=== PATIENT | male | born 1960 | race Caucasian/White ===

== ENCOUNTER 2020-04-08 17:33 | Observation (INO) ==
[2020-04-08] MEDS ORDERED: *HR* LORazepam 2 MG/ML VIAL IVP PRN ×2 (17:43)
[2020-04-08] MEDS ORDERED: Folic Acid 1 MG TABLET PO ONE (17:44)
[2020-04-08] MEDS ORDERED: 0.9 % Sodium Chloride 1,000 ML IVC ONE (17:44)
[2020-04-08] MEDS ORDERED: Thiamine (B-1) 100 MG TABLET PO ONE (17:44)
[2020-04-08 18:30] LABS: Alanine Aminotransferase 150 Units/L (7-52); Albumin 3.3 g/dL (3.5-5.7); Albumin/Globulin Ratio 1.2 (1.1-2.2); Alkaline Phosphatase 80 Units/L (34-104); Aspartate Amino Transferase 118 Units/L (13-39); Bilirubin,Direct 0.2 mg/dL (0.0-0.2); Bilirubin,Indirect 0.4 mg/dL (0.0-1.0); Bilirubin,Total 0.6 mg/dL (0.3-1.0); Globulin 2.8 g/dL (2.4-3.5); Lipase 61 Units/L (11-82); Total Protein 6.1 g/dL (6.4-8.9)
[2020-04-08 18:49] LABS: Thyroid Stimulating Hormone < 0.010 mcIU/mL (0.340-5.600)
[2020-04-08 19:48] LABS: Basophils % 0.8 %; Eosinophils # 0.3 K/mcL (0.0-0.6); Eosinophils % 6.6 %; Hematocrit 43.9 % (37.5-50.1); Hemoglobin 14.9 g/dL (12.9-16.9); Lymphocytes # 1.2 K/mcL (0.6-4.6); Lymphocytes % 30.8 %; Mean Corpuscular HGB Conc 33.9 g/dL (31.6-35.5); Mean Corpuscular Hemoglobin 32.5 pg (28.0-33.3); Mean Corpuscular Volume 95.9 fL (83.0-100.0); Mean Platelet Volume 9.9 fL (9.4-12.4); Monocytes # 0.6 K/mcL (0.0-1.3); Monocytes % 15.5 %; Neutrophils # 1.8 K/mcL (1.6-8.9); Platelet Count 108 K/mcL (140-400); Red Blood Count 4.58 M/mcL (4.19-5.50); Red Cell Distribution Width 12.2 % (11.5-14.5); Segmented Neutrophils % 46.3 %; White Blood Count 3.9 K/mcL (4.3-11.1)
[2020-04-08] MEDS ORDERED: Naloxone 0.4 MG/ML INJ IVP PRN (20:13)
[2020-04-08] MEDS ORDERED: Ondansetron 4 MG/2 ML VIAL IVP PRN (20:13)
[2020-04-08 20:16] LABS: BUN/Creatinine Ratio 19 (6-26); Blood Urea Nitrogen 11 mg/dL (8-23); Calcium 8.5 mg/dL (8.6-10.3); Carbon Dioxide 26 mEq/L (23-29); Chloride 107 mEq/L (98-107); Ethanol < 10 mg/dL (Less than 10); Glucose 93 mg/dL (70-105); Osmolality,Calculated 289 (280-300); Sodium 140 mEq/L (136-145); Troponin I < 0.03 ng/mL (< 0.04); eGFR For African Americans > 60 (> 60); eGFR For Non-African Americans > 60 (> 60)
[2020-04-08 21:06] LABS: Folate > 22.3 ng/mL (3.0-16.0); Vitamin B12 569 pg/mL (250-1100)
[2020-04-08] MEDS ORDERED: Calcium Gluconate 1gm/50mL 1 GM/50 ML BAG IVPB ONE (21:42)
[2020-04-08] MEDS: Nicotine 14 MG PATCH.TD24 TD SCH (22:22)
[2020-04-08] MEDS: *HR* LORazepam 2 MG/ML VIAL IVP PRN (22:23)
[2020-04-08 22:48] LABS: Bilirubin,Urine Negative (Negative); Blood,Urine Trace (Negative); Clarity,Urine Clear (Clear); Color,Urine Light-Yellow (Yellow); Glucose,Urine (UA) Normal (Normal); Hyaline Casts,Urine Few per lpf (None Seen); Ketones,Urine Negative (Negative); Leukocyte Esterase,Urine Negative (Negative); Mucus,Urine Few per lpf (None-Few); Nitrite,Urine Negative (Negative); Protein,Urine Negative (Neg-Trace); Specific Gravity,Urine 1.015 (1.010-1.025); Squamous Epithelial Cell,Urine Few per hpf (None-Few); WBC,Urine 0-3 per hpf (0-3)
[2020-04-08 23:07] LABS: Amphetamine Screen,Urine Negative ng/mL (Cutoff=1000); Barbiturate Screen,Urine Negative ng/mL (Cutoff=200); Benzodiazepines Screen,Urine Negative ng/mL (Cutoff=200); Cannabinoid Screen,Urine Positive ng/mL (Cutoff = 50); Cocaine Screen,Urine Negative ng/mL (Cutoff= 300); Opiate Screen,Urine Negative ng/mL (Cutoff=300); Phencyclidine Screen,Urine Negative ng/mL (Cutoff=25)
[2020-04-09 00:06] LABS: Triiodothyronine (T3) Free 7.06 pg/mL (2.50-3.90)
[2020-04-09 00:09] LABS: Triiodothyronine (T3) Total 2.36 ng/mL (0.87-1.78)
[2020-04-09 01:10] LABS: Mean Corpuscular Volume 97.8 fL (83.0-100.0)
[2020-04-09 01:12] LABS: Hematocrit 45.2 % (37.5-50.1); Immature Platelets 5.8 % (1.1-6.1); Mean Corpuscular HGB Conc 33.2 g/dL (31.6-35.5); Mean Corpuscular Hemoglobin 32.5 pg (28.0-33.3); Mean Platelet Volume 10.4 fL (9.4-12.4); Red Blood Count 4.62 M/mcL (4.19-5.50); White Blood Count 3.6 K/mcL (4.3-11.1)
[2020-04-09 01:25] LABS: BUN/Creatinine Ratio 21 (6-26); Blood Urea Nitrogen 11 mg/dL (8-23); Carbon Dioxide 24 mEq/L (23-29); Chloride 106 mEq/L (98-107); Chol/HDL Ratio 2.1 (0-4.9); Cholesterol 105 mg/dL (< 200); Glucose 92 mg/dL (70-105); HDL Cholesterol 51 mg/dL (40-59); LDL Cholesterol,Calculated 46 mg/dL (< 100); Magnesium 1.6 mg/dL (1.6-2.6); Osmolality,Calculated 283 (280-300); Potassium 3.8 mEq/L (3.5-5.1); Sodium 137 mEq/L (136-145); Triglycerides 41 mg/dL (< 150); eGFR For African Americans > 60 (> 60); eGFR For Non-African Americans > 60 (> 60)
[2020-04-09] MEDS: *HR* LORazepam 2 MG/ML VIAL IVP PRN ×3 (03:46→20:48)
[2020-04-09] MEDS ORDERED: Gabapentin 300 MG CAPSULE PO SCH (09:00)
[2020-04-09] MEDS ORDERED: clonazePAM 0.5 MG TABLET PO ONE (12:13)
[2020-04-09] MEDS ORDERED: cloNIDine HCL 0.1 MG TABLET PO ONE (12:24)
[2020-04-09] MEDS: Gabapentin 300 MG CAPSULE PO SCH ×2 (15:14→20:48)
[2020-04-09] MEDS: methIMAzole 5 MG TABLET PO SCH ×2 (15:14→20:48)
[2020-04-09] MEDS ORDERED: Isovue-370 500 ML BOTTLE IVP ONE (17:30)
[2020-04-09] MEDS: cloNIDine HCL 0.1 MG TABLET PO SCH (20:48)
[2020-04-09] MEDS: Nicotine 14 MG PATCH.TD24 TD SCH (21:01)
[2020-04-09] MEDS: Melatonin 3 MG TABLET PO PRN (23:39)
[2020-04-10 05:39] LABS: Mean Platelet Volume 10.4 fL (9.4-12.4); Red Cell Distribution Width 11.9 % (11.5-14.5)
[2020-04-10 05:41] LABS: Hematocrit 48.1 % (37.5-50.1); Hemoglobin 16.6 g/dL (12.9-16.9); Immature Platelets 7.1 % (1.1-6.1); Mean Corpuscular HGB Conc 34.5 g/dL (31.6-35.5); Mean Corpuscular Hemoglobin 33.3 pg (28.0-33.3); Mean Corpuscular Volume 96.4 fL (83.0-100.0); Red Blood Count 4.99 M/mcL (4.19-5.50); White Blood Count 4.7 K/mcL (4.3-11.1)
[2020-04-10 05:55] LABS: Alanine Aminotransferase 150 Units/L (7-52); Albumin 3.7 g/dL (3.5-5.7); Albumin/Globulin Ratio 1.3 (1.1-2.2); Alkaline Phosphatase 84 Units/L (34-104); Aspartate Amino Transferase 102 Units/L (13-39); BUN/Creatinine Ratio 16 (6-26); Bilirubin,Total 1.1 mg/dL (0.3-1.0); Blood Urea Nitrogen 11 mg/dL (8-23); Calcium 9.3 mg/dL (8.6-10.3); Carbon Dioxide 26 mEq/L (23-29); Chloride 101 mEq/L (98-107); Globulin 2.9 g/dL (2.4-3.5); Glucose 94 mg/dL (70-105); Magnesium 1.7 mg/dL (1.6-2.6); Osmolality,Calculated 279 (280-300); Potassium 3.9 mEq/L (3.5-5.1); Sodium 135 mEq/L (136-145); Total Protein 6.6 g/dL (6.4-8.9); eGFR For African Americans > 60 (> 60); eGFR For Non-African Americans > 60 (> 60)
[2020-04-10] MEDS: Nicotine 14 MG PATCH.TD24 TD SCH (08:37)
[2020-04-10] MEDS: Gabapentin 300 MG CAPSULE PO SCH ×3 (08:37→20:08)
[2020-04-10] MEDS: methIMAzole 5 MG TABLET PO SCH ×3 (08:37→20:08)
[2020-04-10] MEDS: cloNIDine HCL 0.1 MG TABLET PO SCH ×2 (08:37→20:08)
[2020-04-10] MEDS: Thiamine (B-1) 100 MG TABLET PO SCH (10:01)
[2020-04-10] MEDS: Multivit/Ca/Min/Fe/FA 1 TAB TABLET PO SCH (10:02)
[2020-04-10] MEDS: Folic Acid 1 MG TABLET PO SCH (10:02)
[2020-04-10] MEDS: *HR* LORazepam 0.5 MG TABLET PO PRN ×2 (15:11→20:32)
[2020-04-10] MEDS ORDERED: Ipratropium/Albuterol Neb 3 ML IH PRN (15:45)
[2020-04-11] MEDS: Folic Acid 1 MG TABLET PO SCH (08:59)
[2020-04-11] MEDS: Thiamine (B-1) 100 MG TABLET PO SCH (08:59)
[2020-04-11] MEDS: *HR* LORazepam 0.5 MG TABLET PO PRN (08:59)
[2020-04-11] MEDS: Gabapentin 300 MG CAPSULE PO SCH ×3 (09:00→20:12)
[2020-04-11] MEDS: Multivit/Ca/Min/Fe/FA 1 TAB TABLET PO SCH (09:01)
[2020-04-11] MEDS: Nicotine 14 MG PATCH.TD24 TD SCH (09:01)
[2020-04-11] MEDS: cloNIDine HCL 0.1 MG TABLET PO SCH (09:01)
[2020-04-11] MEDS: methIMAzole 5 MG TABLET PO SCH ×3 (09:01→20:12)
[2020-04-11] MEDS: *HR* LORazepam 0.5 MG TABLET PO SCH (20:13)
[2020-04-12] MEDS: Multivit/Ca/Min/Fe/FA 1 TAB TABLET PO SCH (08:23)
[2020-04-12] MEDS: Folic Acid 1 MG TABLET PO SCH (08:23)
[2020-04-12] MEDS: Gabapentin 300 MG CAPSULE PO SCH ×3 (08:23→21:13)
[2020-04-12] MEDS: cloNIDine HCL 0.1 MG TABLET PO SCH (08:24)
[2020-04-12] MEDS: Nicotine 14 MG PATCH.TD24 TD SCH (08:24)
[2020-04-12] MEDS: *HR* LORazepam 0.5 MG TABLET PO SCH ×3 (08:24→21:13)
[2020-04-12] MEDS: methIMAzole 5 MG TABLET PO SCH ×3 (08:24→21:13)
[2020-04-12] MEDS: Thiamine (B-1) 100 MG TABLET PO SCH (08:24)
[2020-04-13 01:49] LABS: Hematocrit 49.4 % (37.5-50.1); Hemoglobin 16.9 g/dL (12.9-16.9); Immature Platelets 6.9 % (1.1-6.1); Mean Corpuscular HGB Conc 34.2 g/dL (31.6-35.5); Mean Corpuscular Hemoglobin 32.3 pg (28.0-33.3); Mean Corpuscular Volume 94.3 fL (83.0-100.0); Mean Platelet Volume 10.1 fL (9.4-12.4); Red Blood Count 5.24 M/mcL (4.19-5.50); Red Cell Distribution Width 11.3 % (11.5-14.5); White Blood Count 6.3 K/mcL (4.3-11.1)
[2020-04-13 02:06] LABS: Alanine Aminotransferase 69 Units/L (7-52); Albumin 3.7 g/dL (3.5-5.7); Albumin/Globulin Ratio 1.2 (1.1-2.2); Alkaline Phosphatase 82 Units/L (34-104); Aspartate Amino Transferase 29 Units/L (13-39); BUN/Creatinine Ratio 29 (6-26); Bilirubin,Total 0.7 mg/dL (0.3-1.0); Blood Urea Nitrogen 18 mg/dL (8-23); Calcium 9.5 mg/dL (8.6-10.3); Carbon Dioxide 25 mEq/L (23-29); Chloride 100 mEq/L (98-107); Globulin 3.1 g/dL (2.4-3.5); Glucose 95 mg/dL (70-105); Magnesium 1.6 mg/dL (1.6-2.6); Osmolality,Calculated 278 (280-300); Potassium 4.1 mEq/L (3.5-5.1); Sodium 133 mEq/L (136-145); Total Protein 6.8 g/dL (6.4-8.9); eGFR For African Americans > 60 (> 60); eGFR For Non-African Americans > 60 (> 60)
[2020-04-13] MEDS ORDERED: Mag Hydrox/Al Hydrox/Simeth 30 ML UDC PO ONE (04:22)
[2020-04-13] MEDS: Nicotine 14 MG PATCH.TD24 TD SCH (07:58)
[2020-04-13] MEDS: *HR* LORazepam 0.5 MG TABLET PO SCH ×3 (07:58→21:00)
[2020-04-13] MEDS: Multivit/Ca/Min/Fe/FA 1 TAB TABLET PO SCH (07:58)
[2020-04-13] MEDS: cloNIDine HCL 0.1 MG TABLET PO SCH (07:58)
[2020-04-13] MEDS: methIMAzole 5 MG TABLET PO SCH ×3 (07:58→20:59)
[2020-04-13] MEDS: Folic Acid 1 MG TABLET PO SCH (07:58)
[2020-04-13] MEDS: Thiamine (B-1) 100 MG TABLET PO SCH (07:58)
[2020-04-13] MEDS: Gabapentin 300 MG CAPSULE PO SCH ×3 (07:58→21:00)
[2020-04-13] MEDS: Melatonin 3 MG TABLET PO PRN (21:08)
[2020-04-14] MEDS: Gabapentin 300 MG CAPSULE PO SCH ×2 (08:59→15:05)
[2020-04-14] MEDS: Thiamine (B-1) 100 MG TABLET PO SCH (08:59)
[2020-04-14] MEDS: Nicotine 14 MG PATCH.TD24 TD SCH (09:00)
[2020-04-14] MEDS: methIMAzole 5 MG TABLET PO SCH ×2 (09:00→15:05)
[2020-04-14] MEDS: cloNIDine HCL 0.1 MG TABLET PO SCH (09:00)
[2020-04-14] MEDS: *HR* LORazepam 0.5 MG TABLET PO SCH ×2 (09:00→15:05)
[2020-04-14] MEDS: Multivit/Ca/Min/Fe/FA 1 TAB TABLET PO SCH (09:00)
[2020-04-14] MEDS: Folic Acid 1 MG TABLET PO SCH (09:00)
[2020-04-14 11:29] VITALS: BP 120/68
== END 2020-04-14 15:25 | disposition home or self-care (01) ==
LOC: EMEROOARM 17:33 → 3ANU 17:33 → SUATTDRO 19:36 → 3ANU 20:33
PROVIDERS: ADMIT Internal Medicine; ATTEND Internal Medicine

== ENCOUNTER 2020-10-01 02:52 | Observation (INO) ==
[2020-10-01 03:44] LABS: Basophils # 0.1 K/mcL (0.0-0.2); Basophils % 0.7 %; Eosinophils # 0.2 K/mcL (0.0-0.6); Eosinophils % 2.4 %; Hematocrit 40.9 % (37.5-50.1); Hemoglobin 13.8 g/dL (12.9-16.9); Immature Granulocytes % 0.4 % (0-4); Immature Platelets 3.8 % (1.1-6.1); Lymphocytes # 2.2 K/mcL (0.6-4.6); Lymphocytes % 30.7 %; Mean Corpuscular HGB Conc 33.7 g/dL (31.6-35.5); Mean Corpuscular Hemoglobin 36.9 pg (28.0-33.3); Mean Corpuscular Volume 109.4 fL (83.0-100.0); Mean Platelet Volume 9.2 fL (9.4-12.4); Monocytes # 0.6 K/mcL (0.0-1.3); Platelet Count 110 K/mcL (140-400); Red Blood Count 3.74 M/mcL (4.19-5.50); Red Cell Distribution Width 11.7 % (11.5-14.5); Segmented Neutrophils % 56.8 %
[2020-10-01 04:03] LABS: Acetaminophen < 10 mcg/mL (10-20); BUN/Creatinine Ratio 21 (6-26); Blood Urea Nitrogen 23 mg/dL (8-23); Calcium 9.4 mg/dL (8.6-10.3); Carbon Dioxide 31 mEq/L (23-29); Chloride 100 mEq/L (98-107); Ethanol < 10 mg/dL (Less than 10); Glucose 101 mg/dL (70-105); Osmolality,Calculated 286 (280-300); Potassium 4.6 mEq/L (3.5-5.1); Salicylate < 2.5 mg/dL (15.0-30.0); Sodium 136 mEq/L (136-145); eGFR For African Americans > 60 (> 60); eGFR For Non-African Americans > 60 (> 60)
[2020-10-01] MEDS ORDERED: *HR* LORazepam 2 MG/ML VIAL IVP PRN ×3 (04:53)
[2020-10-01] MEDS ORDERED: Naloxone 0.4 MG/ML INJ IVP PRN (05:00)
[2020-10-01] MEDS ORDERED: Ondansetron 4 MG/2 ML VIAL IVP PRN (05:00)
[2020-10-01] MEDS ORDERED: Melatonin 3 MG TABLET PO PRN (05:00)
[2020-10-01] MEDS ORDERED: *HR* Promethazine 25 MG/ML VIAL IM PRN (05:00)
[2020-10-01] MEDS: Folic Acid 1 MG in 0.9 % Sodium Chloride 50 ML IVPB SCH (09:58)
[2020-10-01] MEDS: Thiamine (B-1) 200 MG in 0.9 % Sodium Chloride 50 ML IVPB SCH (10:33)
[2020-10-01 11:28] LABS: Folate > 22.3 ng/mL (3.0-16.0); Vitamin B12 601 pg/mL (250-1100)
[2020-10-01 11:36] LABS: ABG Base Excess 1 mEq/L (-2 to 3); ABG HCO3 26 mEq/L (21-27); ABG Oxygen Saturation 98 % (95-98); ABG PCO2 44 mmHg (35-45); ABG PH 7.38 pH Units (7.32-7.45); ABG PO2 99 mmHg (85-104); ABG TCO2 28 mEq/L (20-26)
[2020-10-01 12:29] LABS: Alanine Aminotransferase 35 Units/L (7-52); Albumin 4.1 g/dL (3.5-5.7); Albumin/Globulin Ratio 1.5 (1.1-2.2); Alkaline Phosphatase 96 Units/L (34-104); Aspartate Amino Transferase 64 Units/L (13-39); Bilirubin,Direct 0.4 mg/dL (0.0-0.2); Bilirubin,Indirect 0.9 mg/dL (0.0-1.0); Bilirubin,Total 1.3 mg/dL (0.3-1.0); Globulin 2.8 g/dL (2.4-3.5); Total Protein 6.9 g/dL (6.4-8.9)
[2020-10-01 12:42] LABS: Thyroid Stimulating Hormone 29.021 mcIU/mL (0.340-5.600)
[2020-10-01 17:11] LABS: Triiodothyronine (T3) Total 201 ng/dL (87-178)
[2020-10-02 05:02] LABS: Basophils % 0.9 %; Immature Granulocytes % 0.5 % (0-4); Red Blood Count 3.56 M/mcL (4.19-5.50)
[2020-10-02 05:05] LABS: Eosinophils # 0.2 K/mcL (0.0-0.6); Eosinophils % 3.5 %; Hematocrit 38.7 % (37.5-50.1); Hemoglobin 13.2 g/dL (12.9-16.9); Immature Platelets 2.7 % (1.1-6.1); Lymphocytes # 1.2 K/mcL (0.6-4.6); Lymphocytes % 28.1 %; Mean Corpuscular HGB Conc 34.1 g/dL (31.6-35.5); Mean Corpuscular Hemoglobin 37.1 pg (28.0-33.3); Mean Corpuscular Volume 108.7 fL (83.0-100.0); Mean Platelet Volume 8.9 fL (9.4-12.4); Monocytes # 0.4 K/mcL (0.0-1.3); Monocytes % 8.8 %; Neutrophils # 2.5 K/mcL (1.6-8.9); Platelet Count 102 K/mcL (140-400); Red Cell Distribution Width 11.3 % (11.5-14.5); Segmented Neutrophils % 58.2 %; White Blood Count 4.3 K/mcL (4.3-11.1)
[2020-10-02 05:22] LABS: Magnesium 1.8 mg/dL (1.6-2.6); Phosphorous 2.2 mg/dL (2.7-4.5)
[2020-10-02 05:25] LABS: BUN/Creatinine Ratio 21 (6-26); Blood Urea Nitrogen 17 mg/dL (8-23); Calcium 8.4 mg/dL (8.6-10.3); Carbon Dioxide 24 mEq/L (23-29); Chloride 102 mEq/L (98-107); Glucose 112 mg/dL (70-105); Osmolality,Calculated 280 (280-300); Potassium 3.2 mEq/L (3.5-5.1); Sodium 134 mEq/L (136-145); eGFR For African Americans > 60 (> 60); eGFR For Non-African Americans > 60 (> 60)
[2020-10-02] MEDS: Folic Acid 1 MG in 0.9 % Sodium Chloride 50 ML IVPB SCH (10:06)
[2020-10-02] MEDS ORDERED: Ibuprofen 800 MG TABLET PO PRN (10:23)
[2020-10-02] MEDS: Thiamine (B-1) 200 MG in 0.9 % Sodium Chloride 50 ML IVPB SCH (11:23)
[2020-10-02 11:51] VITALS: O2SAT 93
[2020-10-02] MEDS ORDERED: Potassium Chloride Elixir 20 MEQ/15 ML UDC PO ONE (14:05)
[2020-10-02 14:58] VITALS: BP 155/88; PULSE 91; TEMP 98.3
[2020-10-02] MEDS ORDERED: Gabapentin 300 MG CAPSULE PO SCH (15:00)
[2020-10-02 17:14] LABS: Adenovirus Not Detected (Not Detect); Bordetella Pertussis Not Detected (Not Detect); Chlamydophila pneumoniae Not Detected (Not Detect); Coronavirus 229E Not Detected (Not Detect); Coronavirus HKU1 Not Detected (Not Detect); Coronavirus NL63 Not Detected (Not Detect); Coronavirus OC43 Not Detected (Not Detect); Human Metapneumovirus Not Detected (Not Detect); Human Rhinovirus/Enterovirus Not Detected (Not Detect); Influenza A Subtype 2009 H1 Not Detected (Not Detect); Influenza B Not Detected (Not Detect); Mycoplasma pneumoniae Not Detected (Not Detect); Parainfluenza Virus 1 Not Detected (Not Detect); Parainfluenza Virus 2 Not Detected (Not Detect); Parainfluenza Virus 3 Not Detected (Not Detect); Parainfluenza Virus 4 Not Detected (Not Detect); Respiratory Syncytial Virus Not Detected (Not Detect); SARS-CoV-2 Not Detected (Not Detect)
== END 2020-10-02 18:17 ==
LOC: EMEROOARM 02:52 → 2ANU 02:52 → 2NENU 04:41
PROVIDERS: ADMIT Internal Medicine; ATTEND Internal Medicine